=== PATIENT | male | born 1970 | race Hispanic/Latino ===

== ENCOUNTER 2020-10-23 11:09 | Emergency (ER) | payer OTHER ==
[~2020-10-23] VITALS: Ht 165.1 cm; Wt 117.9 kg
[2020-10-23] MEDS ORDERED: SODIUM CHLORIDE 0.9% 1000ML 1,000 ML IV STA (12:05)
[2020-10-23] MEDS ORDERED: PANTOPRAZOLE 40 MG 10ML VIAL IV NR (12:05)
[2020-10-23] MEDS ORDERED: ONDANSETRON HCL INJ 2MG/ML 2ML 2 MG/ML VIAL IV ONE (12:15)
[2020-10-23 12:35] LABS: BASOPHILS % 0.4 % (0.0-1.0); EOSINOPHILS % 0.4 % (0.0-6.0); HEMATOCRIT 46.8 % (38.2-49.6); HEMOGLOBIN 16.3 g/dL (14.0-18.0); LYMPHOCYTES % 14.9 % (18.0-39.1); MEAN CORPUSCULAR HEMOGLOBIN 29.2 pg (28-32); MEAN CORPUSCULAR HGB CONC 34.8 g/dL (31-35); MEAN CORPUSCULAR VOLUME 83.9 fL (81-99); MONOCYTES % 14.8 % (4.4-11.3); NEUTROPHILS # (AUTO) 4.8 (2.1-6.9); NEUTROPHILS % 69.2 % (38.7-80.0); PLATELET COUNT 370 x10e3/uL (140-360); RED BLOOD COUNT 5.58 x10e6/uL (4.3-5.7); RED CELL DISTRIBUTION WIDTH 12.3 % (11.7-14.4)
[2020-10-23 12:56] LABS: ALANINE AMINOTRANSFERASE 37 IU/L (0-55); ALBUMIN/GLOBULIN RATIO 0.9 (0.8-2.0); ALKALINE PHOSPHATASE 88 IU/L (40-150); ANION GAP 17.7 mmol/L (8-16); BLOOD UREA NITROGEN 22 mg/dL (7-26); BUN/CREATININE RATIO 18 (6-25); CALCIUM 8.9 mg/dL (8.4-10.2); CARBON DIOXIDE 23 mmol/L (22-29); CHLORIDE 90 mmol/L (98-107); CREATININE, SERUM 1.23 mg/dL (0.72-1.25); EST GLOMERULAR FILTRATION RATE > 60 ML/MIN (60-); GLUCOSE 118 mg/dL (74-118); MAGNESIUM 2.1 MG/DL (1.3-2.1); SODIUM 128 mmol/L (136-145)
[2020-10-23] MEDS ORDERED: POTASSIUM CHLORIDE 20 MEQ TAB CR PO NR (13:00)
[2020-10-23] MEDS ORDERED: POTASSIUM CHLORIDE 10MEQ/100ML 100 ML IV ONE (13:00)
[2020-10-23 13:01] LABS: POTASSIUM 2.7 mmol/L (3.5-5.1)
== END 2020-10-23 14:58 | disposition home or self-care (01) ==
LOC: ER 11:21
DX: R11.2 Nausea with vomiting, unspecified (principal); R19.7 Diarrhea, unspecified; E86.0 Dehydration; E87.6 Hypokalemia
CPT/HCPCS: 36415; 80053; 83735; 85025; 99284; C9113; J2405; J3480; J7030